=== PATIENT | female | born 1945 | race Caucasian/White ===

== ENCOUNTER → 2016-12-21 | Outpatient (CLI) | payer OTHER | LOC: FIMAGING 09:20 | DX: Z12.31 Encounter for screening mammogram for malignant neoplasm of breast (principal) | CPT/HCPCS: G0202 ==

== ENCOUNTER 2017-01-01 | Observation (INO) | payer OTHER ==
--- NOTE | 2017-01-01 00:21 | CPEKG ---
Heart Rate: 79 RR Interval: 759 P-R Interval: 160 QRSD Interval: 96 QT Interval: 392 QTC Interval: 450 P [place]: 43 QRS [place]: -19 T Wave [place]: 35 EKG Severity - BORDERLINE ECG - EKG Impression: SINUS RHYTHM EKG Impression: PROBABLE LEFT ATRIAL ABNORMALITY EKG Impression: BORDERLINE LEFT AXIS DEVIATION Electronically Signed By: Jimy Mukherjee 01-Jan-2017 07:04:35
[2017-01-01] MEDS ORDERED: ASPIRIN 81 MG CHEWABLE TAB PO ONE (00:22)
[2017-01-01] MEDS ORDERED: NS 1,000 ML IV ONE (00:22)
--- NOTE | 2017-01-01 00:24 | EDPHY ---
H & P Stated Complaint: dizzy and discomfort to l side chest HPI/ROS: HPI CHIEF COMPLAINT: Chest pain HISTORY OF PRESENT ILLNESS: This patient otherwise healthy 71-year-old female she does have significant past medical history for hyperlipidemia, hypertension , no history of CVA or cardiac disease. Does also have a history of chronic cervical pain or neck pain also has a history of vertigo. Patient presents emergency room with stating that around 1030 this evening she was trying to go to sleep late backwards and got a sudden onset of room spinning or vertigo sensation. She has associated nausea with it. She states over the last few hours she has had some chest discomfort pressure left side of her chest nonradiating. She also feels like her throat is tight. She denies focal numbness or tingling denies focal weakness. She decided come to the emergency room due to vertigo with associated nausea room spinning as well as left-sided chest pressure. Patient did take an aspirin prior to arrival currently she has worsening room spinning sensation when you lay her flat in bed. She is better sitting up. When she tells her head backwards she gets dizzy. She does have left-sided chest pressure at this time. Patient denies headache, fever. Past Medical History: Hypertension, hyperlipidemia, chronic neck pain, vertigo Past Surgical History: No recent surgical history Social History: Lives independently, locally, denies drugs alcohol tobacco products, daughter at bedside Family History: Noncontributory ROS REVIEW OF SYSTEMS: A comprehensive 10 point review of systems is otherwise negative aside from elements mentioned in the history of present illness. Exam Constitutional appears well nontoxic, triage nursing summary reviewed, vital signs reviewed, awake/alert. Eyes normal conjunctivae and sclera, EOMI, PERRLA. HENT normal inspection, atraumatic, moist mucus membranes, no epistaxis, neck supple/ no meningismus, no raccoon eyes. Respiratory clear to auscultation bilaterally, normal breath sounds, no respiratory distress, no wheezing. Cardiovascular rate normal, regular rhythm, no murmur, no edema, distal pulses normal. Gastrointestinal soft, non-tender, no rebound, no guarding, normal bowel sounds, no distension, no pulsatile mass. Genitourinary no CVA tenderness. Musculoskeletal no midline vertebral tenderness, full range of motion, no calf swelling, no tenderness of extremities, no meningismus, good pulses, neurovascularly intact. Skin pink, warm, & dry, no rash, skin atraumatic. Neurologic awake, alert and oriented x 3, AAOx3, moves all 4 extremities equally, motor intact, sensory intact, CN II-XII intact, normal cerebellar, normal vision, normal speech. No nystagmus with head movement. However worsening or room spinning sensation when she tilts her head back or lays flat. Psychiatric normal mood/affect. Heme/Lymph/Immune no lymphadenopathy. Differential diagnosis includes but is not limited to: ACS, vertigo, CVA, TIA atypical chest pain, pneumothorax, pneumonia, pulmonary embolism, aortic dissection, congestive heart failure, tumor, musculoskeletal pain, esophageal pain, GERD, peptic ulcer disease, pancreatitis Medical Decision Making: Plan for this patient IV establishment, full mobile home set up person, EKG, blood work, IV fluid bolus, IV Zofran for nausea, meclizine for dizziness. Nitroglycerin for chest pain. Rule out acute coronary syndrome check blood work. Re-evaluation: EKG interpretation by me on record in [employer] system. Impression time of EKG 0019: Sinus rhythm rate of [address] depression noted in lead 2, V4 V5 V6 I do not appreciate acute ST elevation. This EKG is abnormal and given the ST depression looks ischemic. When I compare this to her old EKG on [address] depression is more prominent on today's current EKG. ED x-ray chest 1 view: Negative for acute cardiopulmonary disease. Image interpreted by myself 0104AM: Re-evaluation at this time she does tell me that she got dizzy while lying flat and the CT scan machine. Denies vomiting. She does have some chest pressure stool. She has received IV fluids at this time nitroglycerin meclizine and Zofran will closely monitor. I did review her chest x-ray which is normal, CT head without contrast is normal for bleed or stroke. EKG shows the ST depression. Troponin is noted to be negative. 0125AM: Re-evaluation at this time patient resting comfortably. She is agreeable on admission for chest pain evaluation and vertigo. I did speak with her daughter at bedside they agree to stay. Patient be admitted to the hospitalist service for further chest pain rule out with serial enzymes serial EKGs. Stress test. Also recommend if she has ongoing vertigo move MRI brain. CT scan here in emergency room did not show anything acute. 0145: Re-evaluation this time patient still feels somewhat dizzy. I will ordered her IV Valium 2.5 mg see if this improves dizziness. No significant chest pressure at this time. Source: Patient - Personal History Current Tetanus/Diphtheria Vaccine: Yes Current Tetanus Diphtheria and Acellular Pertussis (TDAP): Yes - Medical/Surgical History Hx Asthma: No Hx Chronic Respiratory Disease: No Hx Diabetes: No Hx Cardiac Disease: No Hx Renal Disease: No Hx Cirrhosis: No Hx Alcoholism: No Hx HIV/AIDS: No Hx Splenectomy or Spleen Trauma: No Other PMH: PMH- HLD, BULGING NECK DISC, VIRAL MENINGITIS. PSH- X2 BACK SURGERY - Social History Smoking Status: Former smoker Constitutional: Initial Vital Signs Temperature (C) 36.6 C 01/01/17 00:07 Heart Rate 88 01/01/17 00:07 Respiratory Rate 18 01/01/17 00:07 Blood Pressure 183/93 H 01/01/17 00:07 O2 Sat (%) 96 01/01/17 00:07 O2 Delivery Mode Nasal Cannula O2 (L/minute) 2 Allergies/Adverse Reactions: moxifloxacin [From Avelox] Allergy (Verified 01/01/17 01:44) ALVALOX Allergy (Uncoded 10/19/15 09:08) Home Medications: Medication Instructions Recorded Cholecalciferol Vit D3 [Vitamin D3 2,000 units PO HS 01/01/17 2000 units tab (OTC)] Herbals/Supplements -Info Only 1 ea PO DAILY 01/01/17 Losartan Potassium [Cozaar 25 mg 25 mg PO HS 01/01/17 (*)] Meclizine HCl [Meclizine HCl 25 mg 25 mg PO BID PRN #60 tab 01/01/17 (RX,OTC)] Nitroglycerin [Nitrostat 0.4 mg 0.4 mg SL Q5M PRN #1 btl 01/01/17 (*)] [place]-3 Fatty Acids [Fish Oil 1000 1,000 mg PO HS 01/01/17 mg (*)] Omeprazole [Prilosec 20 mg] 20 mg PO DAILY PRN 01/01/17 Ondansetron Odt [Zofran Odt 4 mg 4 mg PO Q4HRS PRN #30 tab 05/23/17 (*)] Medical Decision Making - Data Points Laboratory Results: Laboratory Results 01/01/17 00:15 01/01/17 00:15 Medications Given: Discontinued Medications Aspirin (Aspirin) 324 mg PO EDNOW ONE Stop: 01/01/17 00:23 Last Admin: 01/01/17 00:38 Dose: Not Given Diazepam (Valium Injection) 2.5 mg IVP ONCE ONE Stop: 01/01/17 01:45 Last Admin: 01/01/17 01:54 Dose: 2.5 mg Sodium Chloride (Ns) 1,000 mls @ 0 mls/hr IV ONCE ONE PRN Reason: Wide Open Stop: 01/01/17 00:23 Last Admin: 01/01/17 00:38 Dose: 1,000 mls Sodium Chloride (Ns) 1,000 mls @ 100 mls/hr IV CONT JULISSA Stop: 01/01/17 13:59 Last Admin: 01/01/17 04:15 Dose: 1,000 mls Meclizine HCl (Meclizine Hcl) 25 mg PO EDNOW ONE Stop: 01/01/17 00:40 Last Admin: 01/01/17 01:03 Dose: 25 mg Nitroglycerin (Nitrostat) 0.4 mg SL EDNOW ONE Stop: 01/01/17 00:27 Last Admin: 01/01/17 00:38 Dose: 0.4 mg Ondansetron HCl (Zofran) 4 mg IVP EDNOW ONE Stop: 01/01/17 00:40 Last Admin: 01/01/17 00:45 Dose: 4 mg Departure - Departure Disposition: [facility] Acute Clinical Impression: Dizziness Chest pain Qualifiers: Chest pain type: unspecified Qualified Code(s): R07.9 - Chest pain, unspecified Condition: Good
[2017-01-01] MEDS ORDERED: NITROGLYCERIN 0.4 MG BTL SL ONE (00:26)
[2017-01-01] MEDS ORDERED: ONDANSETRON 4 MG/2 ML VIAL IVP ONE (00:39)
[2017-01-01] MEDS ORDERED: MECLIZINE HCL 25 MG TAB PO ONE (00:39)
[2017-01-01 00:46] LABS: ALANINE AMINOTRANSFERASE 29 IU/L (9-52); ALBUMIN 4.8 g/dL (3.5-5.0); ALKALINE PHOSPHATASE 64 IU/L (38-126); ANION GAP 12 mEq/L (8-16); ASPARTATE AMINOTRANSFERASE 24 IU/L (14-46); BILIRUBIN,TOTAL 0.5 mg/dL (0.1-1.4); BILIRUBIN-CONJUGATED 0.3 mg/dL (0.0-0.5); BILIRUBIN-UNCONJUGATED 0.2 mg/dL (0.0-1.1); CALCIUM 9.5 mg/dL (8.5-10.4); CARBON DIOXIDE 24 mEq/l (22-31); CHLORIDE 103 mEq/L (97-110); CREATININE 1.2 mg/dL (0.6-1.0); GLOMERULAR FILTRATION RATE 44; GLUCOSE 119 mg/dL (70-100); MAGNESIUM 1.9 mg/dL (1.6-2.3); POTASSIUM 4.2 mEq/L (3.5-5.2); SODIUM 139 mEq/L (134-144); TOTAL PROTEIN 7.1 g/dL (6.3-8.2)
[2017-01-01 00:48] LABS: % IMMATURE GRANULYOCYTES 0.4 % (0.0-1.1); ABSOLUTE IMMATURE GRANULOCYTES 0.04 10^3/uL (0.00-0.10); ADD DIFF? NO; ADD MORPH? NO; ADD SCAN? NO; ATYPICAL LYMPHOCYTE FLAG 0 (0-99); FRAGMENT RBC FLAG 0 (0-99); HEMATOCRIT 41.2 % (38.0-47.0); HEMOGLOBIN 14.5 g/dL (12.6-16.3); LEFT SHIFT FLG 0 (0-99); LIPEMIA HEMOLYSIS FLAG 90 (0-99); MEAN CELL HEMOGLOBIN 31.4 pg (27.9-34.1); MEAN CELL HEMOGLOBIN CONCENTR. 35.2 g/dL (32.4-36.7); MEAN CELL VOLUME 89.2 fL (81.5-99.8); MEAN PLATELET VOLUME 10.1 fL (8.7-11.7); PLATELET CLUMPS FLAG 10 (0-99); PLATELET COUNT 260 10^3/uL (150-400); RED BLOOD CELL COUNT 4.62 10^6/uL (4.18-5.33); RED CELL DISTRIBUTION WIDTH 12.1 % (11.5-15.2)
[2017-01-01 00:59] LABS: CK-MB INTERPRETATION NEGATIVE (NEGATIVE); TROPONIN I < 0.012 ng/mL (0-0.034)
[2017-01-01 01:06] LABS: INR 0.96 (0.83-1.16); PROTIME(PATIENT) 12.7 SEC (12.0-15.0)
[2017-01-01 01:07] LABS: APTT 25.1 SEC (23.0-38.0)
[2017-01-01] MEDS ORDERED: DIAZEPAM 10 MG/2 ML SYR IVP ONE (01:44)
[2017-01-01] MEDS ORDERED: DIAZEPAM 10 MG/2 ML SYR ONE (01:51)
[2017-01-01] MEDS ORDERED: ACETAMINOPHEN 325 MG TAB PO PRN (02:00)
[2017-01-01] MEDS ORDERED: ONDANSETRON 4 MG/2 ML VIAL IVP PRN (02:00)
[2017-01-01] MEDS ORDERED: ONDANSETRON DISINTEGRATING 4 MG TAB PO PRN (02:00)
[2017-01-01] MEDS ORDERED: NITROGLYCERIN 0.4 MG BTL SL PRN (02:07)
[2017-01-01] MEDS ORDERED: LORazepam 2 MG/ML INJ IVP PRN (03:58)
[2017-01-01] MEDS ORDERED: MECLIZINE HCL 25 MG TAB PO PRN (03:58)
[2017-01-01] MEDS ORDERED: NS 1,000 ML IV SCH (04:00)
--- NOTE | 2017-01-01 04:49 | GHP ---
[f rep st] HISTORY AND PHYSICAL DATE OF ADMISSION: 01/01/2017 CHIEF COMPLAINT: Vertigo, chest pain. HISTORY OF PRESENT ILLNESS: A 71-year-old [place] female with history of chronic neck pain, gastritis, hypertension, hyperlipidemia presenting with neck pain, as well as left chest pressure. At 10:30 this evening, she was trying to sleep, but had a sudden onset of vertigo when she laid backwards in bed. Along with that, she did endorse left-sided chest pressure that radiated to her neck and jaw. She felt very flushed and hot in the head along with nausea without emesis. She took an aspirin at home. Of note, patient is a very difficult historian and it is difficult to keep her on point. She will not directly answer a question, but it sounds like that she has had chest pain in the past. She could not tell me when it started, but it sounds like she has this chest pressure 1 or 2 times a week and it is worse with walking. She will have some shortness of breath with it. She has felt more tired in the last couple days and states that the heaviness is worse today and that she does not usually have the radiation to the jaw. She reports having a cardiac stress test 4 to 5 years ago in [place] that was normal. She could not recall what hospital this was completed at. Currently, she is chest pain-free and the vertigo has improved. Denies PND, lower extremity edema or pillow orthopnea. She denies cough, fever or chills. REVIEW OF SYSTEMS: I completed a 10-point review of systems. Again, difficult to obtain history from patient. Most of the information is from [employer] and [employer] records. PAST MEDICAL HISTORY: Chronic pain, gastritis, neck pain, GERD, hyperlipidemia , hypertension, multinodular goiter, osteoporosis. PAST SURGICAL HISTORY: Two back surgeries, a uterine polyp removal. FAMILY HISTORY: Mother had a stroke. SOCIAL HISTORY: Lives in [place]. Occasional alcohol. No illicits or drugs. ALLERGIES: Avelox. HOME MEDICATIONS: Losartan 25 mg daily, ProAir, fish oil, gabapentin, magnesium , multivitamin, vitamin D3. PHYSICAL EXAM: VITAL SIGNS: Temperature 36.8, blood pressure 143/83, heart rate in 70s to 80s, respiration 18, 92% on room air. GENERAL: Patient is propped up on a couple pillows. No acute distress. HEENT: PERRLA. EOMI. Oropharynx clear. CV: Regular rate and rhythm. No murmurs, gallops, or rubs. EXTREMITIES: No lower extremity edema. LUNGS: Clear to auscultation. No crackles or wheezing. ABDOMEN: Soft, nontender, nondistended. Positive bowel sounds : No suprapubic tenderness. MUSCULOSKELETAL: 5/5 upper lower extremity strength. NEURO: 2 through 12 intact. Sitting with head propped up on several pillows to avoid vertigo. No focal deficits. PSYCH: Alert and oriented x3. LABORATORY DATA: Sodium 139, potassium 4.2, chloride 103, carbon dioxide 24, creatinine is 1.2 (baseline is 0.9). BUN is 27, glucose 119, calcium 9.5. LFTs within normal. Troponin less than 0.012. BNP is 119. WBC is 8.9, hemoglobin 14, hematocrit 41, platelets 260. Chest x-ray is personally reviewed by me. No effusion or opacity. EKG, personally reviewed by me, normal sinus rhythm with a [address] depression in V3 through 6, which is new from prior in October of 2015. ASSESSMENT AND PLAN: 1. Acute chest heaviness: DDx includes angina, musk, PE, anxiety. Seems to be an anginal equivalent, but very difficult to determine if getting worse, bc patient difficult historian. Initial troponin was negative, but there are new ST depressions in anterior leads. Will repeat both these. Will monitor on telemetry in the PCU and stress test in the morning. 2. Vertigo: Patient has a history of this in the past and it has improved. CT head was negative. Will treat symptomatically with benzos and meclizine. 3. Benign hypertension: Hold losartan with mild acute kidney injury. 4. Acute kidney injury: Creatinine now 1.2 from baseline of 0.9. The patient received fluids in the emergency room. Will repeat in the morning. Renally dose medications. 5. Diet: N.p.o. for stress test. 6. Deep venous thrombosis prophylaxis: Lovenox. DISPOSITION: Patient warrants observation admission given acute chest pressure requiring telemetry, serial troponins, and EKG. /[id number]/MODL MTDD
[2017-01-01 07:31] LABS: ANION GAP 10 mEq/L (8-16); CALCIUM 9.6 mg/dL (8.5-10.4); CARBON DIOXIDE 25 mEq/l (22-31); CHLORIDE 106 mEq/L (97-110); CREATININE 0.8 mg/dL (0.6-1.0); GLOMERULAR FILTRATION RATE > 60; GLUCOSE 103 mg/dL (70-100); POTASSIUM 4.7 mEq/L (3.5-5.2); SODIUM 141 mEq/L (134-144)
[2017-01-01 07:34] VITALS: O2SAT 92
[2017-01-01 07:42] LABS: TROPONIN I < 0.012 ng/mL (0-0.034)
[2017-01-01] MEDS ORDERED: Herbals/Supplements -Info Only PO SCH (09:00)
[2017-01-01] MEDS ORDERED: PANTOPRAZOLE SODIUM 40 MG TAB PO PRN (09:00)
[2017-01-01] MEDS ORDERED: REGADENOSON 0.4 MG/5 ML SYR IVP ONE (10:33)
--- NOTE | 2017-01-01 11:28 | CPEKG ---
Heart Rate: 70 RR Interval: 857 P-R Interval: 160 QRSD Interval: 92 QT Interval: 412 QTC Interval: 445 P [place]: 69 QRS [place]: 15 T Wave [place]: 19 EKG Severity - NORMAL ECG - EKG Impression: SINUS RHYTHM EKG Impression: DIFFUSE NONSPECIFIC ST ABNORMALITIES EKG Impression: COMPARED WITH JAN 01 2017 AT 0:19, AXIS HAS SHIFTED Electronically Signed By: Aileen Arreola 01-Jan-2017 12:47:32
--- NOTE | 2017-01-01 11:45 | PDCARST ---
CAR Stress Test Results Type of Stress Test: Lexiscan stress test Indication: cp Description of Procedure: After informed consent was obtained, pt was established to ECG, blood pressure, HR and oximetry monitoring. STRESS EKG AND HEMODYNAMIC DATA. Resting heart rate: 68 BPM. Resting ECG: SR. Resting blood pressure: 128/70 mmHg. O2 saturation at rest: 96. Peak heart rate: 102 BPM. Peak blood pressure: 130/64 mmHg. Arrhythmias: None. Symptoms: The patient experienced no typical symptoms of angina during stress or recovery. Stress/Infusion ECG: No change in rhythm with no significant ST/T wave changes. Stress/infusion O2 saturation: 99% Impression: Uneventful Lexiscan infusion. Conclusion: Await nuclear images.
[2017-01-01 13:51] VITALS: RESP 16; TEMP 97.8
[2017-01-01 16:56] VITALS: BP 152/88; PULSE 70
[2017-01-01] MEDS ORDERED: CHOLECALCIFEROL VIT D3 2,000 UNITS TAB/CAP PO SCH (21:00)
[2017-01-01] MEDS ORDERED: OMEGA-3 FATTY ACIDS 1,000 MG CAP PO SCH (21:00)
--- NOTE | 2017-01-02 19:09 | PDDCSUM ---
Discharge Summary Discharge Summary: DISCHARGE DIAGNOSES: -chest pain resolved -ruled out for myocardial infarction -no evidence of myocardial ischemia or other abnormalities on myocardial perfusion imaging with stress -chronic cervical radiculopathy now developing weakness in her right hand dropping small items at home. HOSPITAL COURSE SUMMARY: She presented with atypical chest pain with no evidence of heart failure or arrhythmia and rule out for [place]. Lexiscan stress was myocardial perfusion imaging was normal. At this time she is felt to not have a cardiac cause for chest pain which is resolved and the cause of this is unknown. However there is no evidence of any concerning pathology causing his symptoms she is felt stable for discharge. She will however follow up with the primary care physician next week to be sure that she continues to do well, I have discussed in detail with the patient and the patient's daughter at the bedside that there can be false negative results on stress testing and there may be other possible causes of her pain so that if this continues to bother her she should seek attention. The patient also did mention on the day of discharge that she has chronic cervical radicular pain going in primarily the right arm but in both hands with some numbness. She has been working with physical and other therapies for 2 years without any improvement. She does have MRI scanning showing significant disc disease with neural entrapment. However she says that this time she has recently been getting weakness in her right hand and has been dropping things. She also has a history of carpal tunnel syndrome. I strongly encouraged her daughter that they should seek out care from a neurosurgeon who can't assess for the cause of her hand weakness be it from her neck or from her carpal tunnel syndrome. Either way at this point as she has ongoing weakness in her symptoms are not getting any better with conservative care surgery is strongly indicated at either the wrist or the neck to preserve her strength and hopefully improve her symptoms overall. They understand this recommendation and will make follow-up plans with Psychiatric which is where they have been going. PENDING TEST RESULTS: None MEDICATION CHANGES: No changes FOLLOW-UP PLAN: With primary care physician next week and with Neurosurgery at [facility] with and Greater than 35 minutes bedside and care coordination time today
== END 2017-01-01 18:03 | disposition home or self-care (01) ==
LOC: INTOOBSV 01:33 → OBSVTOIN 01:33 → F2W 02:23
PROVIDERS: ADMIT Internal Medicine; ATTEND Internal Medicine
DX: R42 Dizziness and giddiness (principal); R07.9 Chest pain, unspecified; M54.2 Cervicalgia; I10 Essential (primary) hypertension; E78.5 Hyperlipidemia, unspecified; Z87.891 Personal history of nicotine dependence
CPT/HCPCS: 70450; 71010; 78452; 93005; 93017; A9500; G0378; J2405; J2785; 96374

== ENCOUNTER → 2017-01-15 | Outpatient (CLI) | payer OTHER | LOC: BMCIMAGING 09:10 | PROVIDERS: ATTEND Internal Medicine | DX: M19.042 Primary osteoarthritis, left hand (principal) ==

== ENCOUNTER → 2017-12-23 | Outpatient (CLI) | payer OTHER | LOC: FIMAGING 08:36 | PROVIDERS: ATTEND Internal Medicine | DX: Z12.31 Encounter for screening mammogram for malignant neoplasm of breast (principal) ==

== ENCOUNTER → 2017-12-30 | Outpatient (CLI) | payer OTHER | LOC: BMCIMAGING 10:14 | PROVIDERS: ATTEND Internal Medicine | DX: R92.8 Other abnormal and inconclusive findings on diagnostic imaging of breast (principal) ==

== ENCOUNTER → 2018-08-25 | Outpatient (CLI) | payer OTHER | LOC: BMCIMAGING 09:58 | PROVIDERS: ATTEND Internal Medicine | DX: M85.80 Other specified disorders of bone density and structure, unspecified site (principal); Z78.0 Asymptomatic menopausal state; E28.39 Other primary ovarian failure ==

== ENCOUNTER → 2018-12-19 | Outpatient (CLI) | payer OTHER | LOC: BMCIMAGING 08:52 | PROVIDERS: ATTEND Internal Medicine | DX: R93.2 Abnormal findings on diagnostic imaging of liver and biliary tract (principal); R16.0 Hepatomegaly, not elsewhere classified ==